=== PATIENT | female | born 1985 | race Caucasian/White ===

== ENCOUNTER 2018-07-25 08:30 | Outpatient (RCR) | payer OTHER, SELFPAY ==
--- NOTE | 2018-05-23 11:22 | HP.PTEVAL_ITS ---
Patient's Visit Information AUSTIN MITCHELL is a 33 year old F referred to Physical Therapy by Marcelino Luna MD with a diagnosis of Multidirectional instability of R shoulder.. Date of Evaluation: 05/23/18 Physical Therapist: Shanna Carreon - Visit Plan Frequency: 2x /Week Duration: 4 Weeks Plan: Focus on posture, scapular stabilization and strengthening, and shoulder strengthening. - Subjective Subjective: Pt. c/o R superior shoulder pain and R clavicular pain. Saw Dr. Vallejo a week and half ago and dx with hyperlaxity and multidirectional instability. Radiographs (-). Pain began couple months ago insideous onset but she notes shoulder pain on/off for years Pain described as achy with sharp pain with activities including getting dressed putting on shirt, sleeping, reaching back to buckle. Pain diminishes within couple seconds. Pain located on superior shoulders and R clavicle; some tingling down to 3rd and 4th phalange. Hx of popping and clicking in R shoulder; no hx of dislocations. Neck stiffness noted with occasional SCOTT. Current pain: night 6/10, day 2-3/10, worst 8-9/10, best 2/10. Pain wakes up at night, with relief sitting upright. Normally sleeps on side but supine now because due to shoulder pain. Icing, and Ibuprofen Mobic rx as needed with little relief. 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 Currently performing less lifting, more computer and less intense work. Notice during ADL but doesn?t restrict. Pain with heavy lifting, pushing objects down. No blurred vision or dizziness. PMH: Raynaud?s, high TRUONG test and will see rheumatologst. No daily medications ; vitamins and supplements daily. Not currently exercising. R hand dominant. Goals include reducing pain. - Pain Superior shoulder Pain Intensity (Out of 10): 2 - Objective Gait: WNL. Posture: R GH joint in forward protracted position. Dermatomes: UE intact with numbness along C5 dermatome on R. Palpation: tender to palpate R superior GH joint and along clavicle. AROM: Cervical WFL, upper trap tightness noted with rotation and lat. flex. R Shoulder flex., ext., abd., add. , ER/IR at 0 and 90 WFL-hypermobility noted. Pain at end ranges flex., abd. Opposition WNL. Strength: upper trap 5/5, R shoulder abd. 3+/5, elbow flex. 4/ 5 with pain, elbow ext. 5/5, wrist flex. and ext. 5/5. Special Test: Neer's (- ) Anterior Relocation (+) - Goals Goal 1:: Patient will be I with HEP and progressions. Goal Time Frame: 4-6 Weeks Goal 2:: Patient will maintain correct posture throughout session to demonstrate increased scap s/s and endurance Goal Time Frame: 4-6 Weeks Goal 3:: Patient will demonstrate increased shoulder strength 5/5 where deficits. Goal Time Frame: 4-6 Weeks Goal 4:: Patient will demonstrate decreased pain at night to 3/10 for 1 week. Goal Time Frame: 4-6 Weeks - Rehabilitation Potential Physical Therapy Diagnosis: Patient presents with hypermobility. Global hyperlaxity including R GH joint resulting in muscular imabalance, and forward posture of GH joint which causes pain interferring with daily function. Rehabilitation Potential: Good - Anticipated Interventions Patient/Client Instruction: Educate patient on: Benefits of Fitness Program For the Purpose of:: To decrease pain, To improve muscle performance and motor function, To increase tolerance to activity/condition/position Therapeutic Exercise to Include: Strength training, Power training, Endurance training, Body mechanics, Postural training, Scapular Strength/Stabilization For the Purpose of:: To decrease pain, To improve muscle performance and motor function, To increase tolerance to activity/condition/position TENS: Yes Cryotherapy (ice pack, ice massage): Yes Thermo therapy (hot pack): Yes Ultrasound (thermal/non thermal): Yes For the Purpose of:: To decrease pain Thank you for the opportunity to evaluate your patient. For Medicare and Medicare HMO plans, please review the plan of care and approve it. It will need to be FAXED BACK to us at [phone] for Medicare purposes. Please let me know if there are questions or concerns regarding this plan of care. Physician Signature: Date:
--- NOTE | 2018-06-20 16:50 | HP.PTREVAL_ITS ---
Marcelino Luna MD, It has been my pleasure to treat AUSTIN MITCHELL over the last 9 visits for Multidirectional instability of R shoulder.. Please see the progress note below for an update on the physical therapy plan of care! Subjective: Pt. reports I am about 40% better overall. Pt. reports being HEP compliant without issues. Pt. is sleeping throughout the night with only occassional symptoms, I am sleeping much better.' Pt. is conserned about continued symptoms with overhead activities. Objective/Function: ROM- Pt. has full ROM of R shoulder, hypermobility noted with shoulder ER and IR (functional). MMT- L UE- 5/5 throughout. R UE- wrist/elbow 5/5 throughout; shoulder- flexion 4+/5 increase NW (anterior sub acromial space), abd 4+/5 (increase NW subacromial space), ER 4+/5 mild increase NW at mid subacromial space, ext 5/5 mild increase NW. Prone mid trap- 4/5, prone lower trap 4/5, serratus anterior. Maurilio test -, avery test - , Millitar brace test -, - empty can, - impingment testing. Pt. does appear to have GH instability, but also scapular winging noted. Pt. reports some 1st rib region pain, assessed, slightly elevated pain with palpation and height of 1st rib. Plan Plan: POC extended 2x per week for another 4 weeks with focus on scapular stability, RTC strengtening, postural strengthening, prone houghstons exercises. Multidirection stability exercises. Goals Goal 1:: Patient will be I with HEP and progressions. Goal Time Frame: 4-6 Weeks Goal Progress: Goal Met Goal 2:: Patient will maintain correct posture throughout session to demonstrate increased scap s/s and endurance Goal Time Frame: 4-6 Weeks Goal Progress: Goal Met Goal 3:: Patient will demonstrate increased shoulder strength 5/5 where deficits. Goal Time Frame: 4-6 Weeks Goal Progress: Progressing Goal 4:: Patient will demonstrate decreased pain at night to 3/10 for 1 week. Goal Time Frame: 4-6 Weeks Goal Progress: Progressing Anticipated Interventions Patient/Client Instruction: Educate patient on: Benefits of Fitness Program For the Purpose of:: To decrease pain, To improve muscle performance and motor function, To increase tolerance to activity/condition/position Therapeutic Exercise to Include: Strength training, Power training, Endurance training, Body mechanics, Postural training, Scapular Strength/Stabilization For the Purpose of:: To decrease pain, To improve muscle performance and motor function, To increase tolerance to activity/condition/position TENS: Yes Cryotherapy (ice pack, ice massage): Yes Thermo therapy (hot pack): Yes Ultrasound (thermal/non thermal): Yes For the Purpose of:: To decrease pain Please do not hesitate to contact me at [phone] by phone or if you have questions or concerns regarding this new plan of care! Sincerely, Cristobal Cheung
--- NOTE | 2018-07-18 09:31 | HP.PTREVAL ---
Marcelino Luna MD, It has been my pleasure to treat AUSTIN MITCHELL over the last 16 visits for Multidirectional instability of R shoulder.. Please see the progress note below for an update on the physical therapy plan of care! Subjective: Patient reports seeing MD who is suggesting a diagnostic cortisone injection and a possible HEP- Objective/Function: ROM- Pt. has full ROM of R shoulder, hypermobility noted with shoulder ER and IR (functional). MMT- L UE- 5/5 throughout. R UE- wrist/elbow 5/5 throughout; shoulder- flexion 4+/5 increase NW (anterior subacromial space), abd 4+/5 (increase NW subacromial space), ER 4+/5 mild increase NW at mid subacromial space, ext 5/5 mild increase NW. increased pain with all testing. Pt. does appear to have GH instability, but also scapular winging noted. Palpation: not tender to touch. Silvia Bermudez: positive Plan Plan: 1x a week for HEP for 3 weeks progression Goals Goal 1:: Patient will be I with HEP and progressions. Goal Time Frame: 4-6 Weeks Goal Progress: Goal Met Goal 2:: Patient will maintain correct posture throughout session to demonstrate increased scap s/s and endurance Goal Time Frame: 4-6 Weeks Goal Progress: Goal Met Goal 3:: Patient will demonstrate increased shoulder strength 5/5 where deficits. Goal Time Frame: 4-6 Weeks Goal Progress: Progressing Goal 4:: Patient will demonstrate decreased pain at night to 3/10 for 1 week. Goal Time Frame: 4-6 Weeks Goal Progress: Progressing Anticipated Interventions Patient/Client Instruction: Educate patient on: Benefits of Fitness Program For the Purpose of:: To decrease pain, To improve muscle performance and motor function, To increase tolerance to activity/condition/position Therapeutic Exercise to Include: Strength training, Power training, Endurance training, Body mechanics, Postural training, Scapular Strength/Stabilization For the Purpose of:: To decrease pain, To improve muscle performance and motor function, To increase tolerance to activity/condition/position TENS: Yes Cryotherapy (ice pack, ice massage): Yes Thermo therapy (hot pack): Yes Ultrasound (thermal/non thermal): Yes For the Purpose of:: To decrease pain Please do not hesitate to contact me at [phone] by phone or if you have questions or concerns regarding this new plan of care! Sincerely, Shanna Carreon
--- NOTE | 2018-12-08 08:57 | HP.PT.NRP ---
HP - Discharge Summary (1) - Patient Information AUSTIN MITCHELL was seen in my office for initial evaluation on 05/23/18. The following Plan of Care was established for this patient: Initial Frequency: 2x /Week Initial Duration: 4 Weeks - Anticipated Interventions Patient/Client Instruction: Educate patient on: Benefits of Fitness Program For the Purpose of:: To decrease pain, To improve muscle performance and motor function, To increase tolerance to activity/condition/position Therapeutic Exercise to Include: Strength training, Power training, Endurance training, Body mechanics, Postural training, Scapular Strength/Stabilization For the Purpose of:: To decrease pain, To improve muscle performance and motor function, To increase tolerance to activity/condition/position TENS: Yes Cryotherapy (ice pack, ice massage): Yes Thermo therapy (hot pack): Yes Ultrasound (thermal/non thermal): Yes For the Purpose of:: To decrease pain This patient was last seen in our office . Pertinent comments regarding their Physical therapy will appear below: Patient has not attended PT in over 90 days- appropriate for d/c at this time. At this point I will be discontinuing this patient from physical therapy. I would be happy to see this patient again in the future if found appropriate by the physician. Thank you! Shanna Carreon DPT
== END 2018-07-25 19:00 | disposition home or self-care (01) ==
LOC: PT 08:30
PROVIDERS: Family Provider Family Medicine; PCP Family Medicine; Visit Provider Specialist
DX: M25.311 Other instability, right shoulder (principal)
CPT/HCPCS: 97110; 97161; 97164; 97530

== ENCOUNTER → 2022-06-13 | Outpatient (CLI) | payer OTHER, SELFPAY ==
[2022-06-13 18:40] LABS: Mucous, Urine 0 SEEN /hpf (<or=2+); Red Blood Cells-Urine 0 SEEN /hpf (0-5); White Blood Cells 0 SEEN /hpf (0-5)
[2022-06-13 18:47] LABS: Color, Urine Straw (Yellow); Glucose, Dipstick Normal (Normal); Ketone-Dipstick Negative (Negative); Leukocyte Esterase-Dipstick Negative /ul (Negative); Nitrite-Dipstick Negative (Negative); Occult Blood-Urine Negative /ul (Negative); Protein-Dipstick Negative (Negative); Specific Gravity, Urine 1.005 (1.002-1.030); Urine Bilirubin Dipstick Negative (Negative); Urine Clarity Clear (Clear); Urine Urobilinogen Normal (Normal)
[2022-06-13 19:32] LABS: Bacteria RARE /hpf (None Seen); Squamous Epithelial Cells - UA 0-5 SEEN /hpf (5-10)
== END | disposition home or self-care (01) ==
PROVIDERS: Visit Provider Nurse Practitioner Family
DX: N39.0 Urinary tract infection, site not specified (principal)
CPT/HCPCS: 81001; 87086

== ENCOUNTER 2023-07-19 12:00 | Outpatient (RCR) | payer OTHER, SELFPAY ==
--- NOTE | 2023-06-08 12:00 | HP.PTEVAL ---
Patient's Visit Information Visit Information Visit Information: AUSTIN MITCHELL is a 38 year old F referred to Physical Therapy by [facility] with a diagnosis of PELVIC FLOOR DYSFUNCTION. Date of Evaluation: 06/07/23 Physical Therapist: Mia Vega PT, Cert MDT Visit Plan Frequency: 1x/Week Duration: 2-4 Months Plan: PF THERAPY FOR STRENGTHENING, LENGTHENING/RELAXATION AND ENDURANCE TRAINING. URINARY URGE AND FREQUENCY EDUCATION. HEALTHY BLADDER HABIT EDUCATION. TRAINING IN COORDINATION OF PELVIC FLOOR MUSCULATURE WITH HIP AND CORE (TRANSVERSE ABDOMINUS) MUSCULATURE. CORE STRENGTHENING. DONI LE ROM, STRETCHING AND STRENGTHENING. TRAINING IN ABDOMINAL CAVITY PRESSURE MGMT WITH ADL'S. CONSIDER US IN SACRAL AREA. 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 2 CHILDREN - AGES 14 AND 17. A LOT OF SACRAL PAIN WITH SACRAL PAIN DURING 2ND . Disability: NO Present symptoms: GENERALIZED TIGHTNESS AND PAIN THAT WRAPS AROUND FROM THE SACRUM TO THE GENITAL AREA AND OCCURS IN THE HIP AND BUTTOCK AREAS. SOME VAGINAL DISCOMFORT THAT HAS IMPROVED SINCE SEEING THE GYNOCOLOGIST. SOME URINARY LEAKAGE WITH URGENCY - CHRONIC X ABOUT 5 YEARS. OCCASSIONAL RO. NO PAIN DURING URINATION. Present since: 5 YEARS. VAGINAL DISCOMFORT IS NEWER WITHIN THE LAST 3-4 MONTH'S. Pain Scale: WORST 6/10, LEAST 1/10 (VAGINAL: WORST 3/10, LEAST 0/10) Currently: 2/10 (VAGINAL 1/10) Is it getting better, worse or staying the same: ALL SX'S ARE GETTING BETTER. Commenced as a result of: FALL IN 2018 and MAYBE STRESS. Worse: COFFEE AND ALCOHOL AND OTHER BLADDER IRRITANTS INCREASE URGE INCONTINENCE. INTERCOURSE INCREASES SACRAL AND PELVIC PAIN. BENDING INCREASES SACRAL AND BUTTOCK PAIN. PROLONGED SITTING INCREASES TAILBONE PAIN. Better: STRETCHING, SOMETIMES ICE, SOMETIMES HEAT, MASSAGE Disturbed sleep: NO. GETTING UP AT NIGHT 0-1 TIMES to urinate. Previous history/Previous treatment: TAILBONE INJURY 2017 - FELL DOWN STEPS AND LANDED ON CORNERS OF 3 STEPS. NOT SURE IF TAILBONE WAS BROKEN. TOOK ABOUT 9 MONTHS TO HEAL. PAIN WENT AWAY AND THEN CAME BACK. SITS ON A CUSHION WHEN RIDING IN A CAR TO DECREASE TAILBONE PAIN. H/O SCIATICA DURING PREGNANCIES AND EPISODICALLY WHICH SHE THINKS HAS EFFECTED BOTH LEGS. 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 OCCASSIONAL ITCHING AND BURNING DURING AND AFTER INTERCOURSE. IUD. NO HISTORY OF PELVIC FLOOR THERAPY. NO HISTORY OF PHYSICAL THERPAY FOR BACK. CURRENTLY SEEING A CHIROPRACTOR AND WENT TO THEM TODAY BEFORE PT. HAS BEEN SEEING CHIROPRACTIC OFF AND ON FOR ABOUT 20 YEARS. Treatment this episode: STEROID CREAM FOR USE NEEDED. Gait: INTERMITTENT NUMBNESS AND STRANGE FEELINGS/WEAKNESS DOWN THE BACK OF LEGS RECENT A MONTH AGO. DOES NOT USE AD'S. How long can you delay the need to urinate: AT LEAST 1 TO 5 MINTUES Prolapse (Falling out feeling): YES Frequency of Urination: APPROX'LY EVERY 2 HOURS Ability to stop urine flow: NOT COMPLETELY Ability to initiate urine stream: YES Dyspareunia: YES Bowel Incontinence: NO Unexplained weight loss: NO Imaging: NONE RECENT. 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 PMH/Recent major surgery: RAYNAUDS DISEASE. NECK PAIN. SHLD PAIN. BACK PAIN. Objective Objective: Sitting/Standing Posture: FAIR Lordosis: NORMAL Lateral shift: NO Relevant shift: N/A Active Correction of posture: BETTER Other Observations: INDEP GAIT AND TRANSFERS. Sensory deficit: DONI LE'S GROSSLY INTACT AND SYMMETRICAL ROM deficit: L HIP IR/ER TIGHTNESS COMPARED TO R. HIP FLEXOR TIGHTNESS. Motor deficit: DONI LE'S GROSSLY 5/5 WITH MMT'ING EXCEPT HIPS 4/5 Dural Signs: NEGATIVE DONI LE'S. Lumbar mvmt loss: flex - NIL ext - NIL R SG - NIL L SG - NIL PATIENT REPORTS INCREASED LBP WITH LUMBAR EXTENSION TESTING. Core strength: FAIR Palpation: MANUAL INTERNAL VAGINAL PELVIC FLOOR TESTING REVEALS MULTIPLE PF TRIGGER POINTS, MILD TIGHTNESS AND MILD TENDERNESS. THERE IS SIGNIFICANT PF WEAKNESS GRADED 3/5 WITH 3-4 SEC ENDURANCE X 3 REPS. FUNCTIONAL SCREEN: Incontinence Impact Questionnaire Score: 6 Urogenital Distress Inventory Score: 8 Goals Goal 1:: DECREASE C/O PELVIC/SACRAL PAIN Goal Time Frame: 4-6 Weeks Goal 2:: PATIENT WILL SUCCESSFULLY DELAY VOIDING LONG NEEDED WHEN URGENCY OCCURS TO SUCCESSFULLY MAKE IT TO THE BATHROOM. Goal Time Frame: 2-4 Weeks Goal 3:: PATIENT WILL DEMONSTRATE/COMMUNICATE 10 CONSISTENT AND CONSECUTIVE 10 SECOND PELVIC FLOOR MUSCLE CONTRACTIONS TO DEMONSTRATE IMPROVED PELVIC FLOOR ENDURANCE. Goal Time Frame: 8-12 Weeks Goal 4:: PATIENT WILL BE ABLE TO HAVE SEXUAL RELATIONS WITH HER WITHOUT PAIN. Goal Time Frame: 8-12 Weeks Goal 5:: NORMALIZE VOIDING FREQUENCEY TO EVERY 3-4 HOURS. Goal Time Frame: 6-8 Weeks Goal 6:: PATIENT WILL BE INDEP WITH A HEP/HOME INSTRUCTIONS FOR CONTINUED IMPROVEMENT ONCE FORMAL PHYSICAL THERAPY CONCLUDES. Goal Time Frame: 8-12 Weeks Anticipated Interventions Patient/Client Instruction: Educate patient on: Condition, Plan of Care and Risk Factors For the Purpose of:: To improve self management Therapeutic Exercise to Include: Strength training, Endurance training, Body mechanics, Postural training, Flexibilty training, Neuromotor development and Relaxation training For the Purpose of:: To decrease pain, To increase ROM, To improve muscle performance and motor function, To increase tolerance to activity/condition/position and To improve ability of physical actions for home/community/work/leisure Manual Therapy Techniques to Include: Trigger point massage and Soft tissue mobilization For the Purpose of:: To decrease pain, To increase ROM and To improve nutrient delivery to tissue Ultrasound (thermal/non thermal): Yes For the Purpose of:: To decrease pain and To improve nutrient delivery to tissue Text: Thank you for the opportunity to evaluate your patient. For Medicare and Medicare HMO plans, please review the plan of care and approve it. It will need to be FAXED BACK to us at [phone] for Medicare purposes. For Medicare only, by signing this I certify the plan of care. Please let me know if there are questions or concerns regarding this plan of care. Physician Signature: Date:
--- NOTE | 2023-07-19 19:06 | HP.PTREVAL_ITS ---
Re-Evaluation Intro: [facility], It has been my pleasure to treat AUSTIN MITCHELL over the last 7 visits for PELVIC FLOOR DYSFUNCTION. Please see the progress note below for an update on the physical therapy plan of care! Subjective Subjective: PATIENT REPORTS THAT WHEN SHE GETS THE URGE TO PEE SHE CAN'T HOLD IT WELL NOW. VAGINAL DISCOMFORT AND L HIP BOTH FELT BETTER FOR A FEW DAYS AFTER LAST VISIT. BENEFIT FROM LAST VISIT WAS TEMPORARY. PATIENT QUESTIONING IF SHE SHOULD START STRENGTHENING EX'S. Objective Objective/Function: PHYSICIAN RE-ASSESSMENT RECOMMENDED BASED ON LACK OF OVER- ALL SIGNIFICANT IMPROVEMENT. PATIENT MAY BENEFIT FROM MORE EXPERIENCE PELVIC FLOOR THERAPIST CONSULT. Plan Plan Plan: HOLD PT. Goals Goals Goal 1:: DECREASE C/O PELVIC/SACRAL PAIN Goal Time Frame: 4-6 Weeks Goal Progress: Not Progressing Goal 2:: PATIENT WILL SUCCESSFULLY DELAY VOIDING LONG NEEDED WHEN URGENCY OCCURS TO SUCCESSFULLY MAKE IT TO THE BATHROOM. Goal Time Frame: 2-4 Weeks Goal Progress: Not Progressing Goal 3:: PATIENT WILL DEMONSTRATE/COMMUNICATE 10 CONSISTENT AND CONSECUTIVE 10 SECOND PELVIC FLOOR MUSCLE CONTRACTIONS TO DEMONSTRATE IMPROVED PELVIC FLOOR ENDURANCE. Goal Time Frame: 8-12 Weeks Goal 4:: PATIENT WILL BE ABLE TO HAVE SEXUAL RELATIONS WITH HER WITHOUT PAIN. Goal Time Frame: 8-12 Weeks Goal Progress: Not Progressing Goal 5:: NORMALIZE VOIDING FREQUENCEY TO EVERY 3-4 HOURS. Goal Time Frame: 6-8 Weeks Goal 6:: PATIENT WILL BE INDEP WITH A HEP/HOME INSTRUCTIONS FOR CONTINUED IMPROVEMENT ONCE FORMAL PHYSICAL THERAPY CONCLUDES. Goal Time Frame: 8-12 Weeks Anticipated Interventions Anticipated Interventions Patient/Client Instruction: Educate patient on: Condition, Plan of Care and Risk Factors For the Purpose of:: To improve self management Therapeutic Exercise to Include: Strength training, Endurance training, Body mechanics, Postural training, Flexibilty training, Neuromotor development and Relaxation training For the Purpose of:: To decrease pain, To increase ROM, To improve muscle performance and motor function, To increase tolerance to activity/condition/position and To improve ability of physical actions for home/community/work/leisure Manual Therapy Techniques to Include: Trigger point massage and Soft tissue mobilization For the Purpose of:: To decrease pain, To increase ROM and To improve nutrient delivery to tissue Ultrasound (thermal/non thermal): Yes For the Purpose of:: To decrease pain and To improve nutrient delivery to tissue Re-Evaluation Ending Re-evaluation ending: Please do not hesitate to contact me at [phone] by phone or Fax: if you have questions or concerns regarding this new plan of care! Sincerely, Mia Vega, PT, Cert MDT
--- NOTE | 2023-12-14 15:56 | HP.PTDCNRP_ITS ---
Patient Information Patient Information: AUSTIN MITCHELL was seen in my office for initial evaluation on 06/07/23. The following Plan of Care was established for this patient: POC Established Initial Frequency: 1x/Week Initial Duration: 2-4 Months Anticipated Interventions Patient/Client Instruction: Educate patient on: Condition, Plan of Care and Risk Factors For the Purpose of:: To improve self management Therapeutic Exercise to Include: Strength training, Endurance training, Body mechanics, Postural training, Flexibilty training, Neuromotor development and Relaxation training For the Purpose of:: To decrease pain, To increase ROM, To improve muscle performance and motor function, To increase tolerance to activity/con dition/position and To improve ability of physical actions for home/community/work/leisure Manual Therapy Techniques to Include: Trigger point massage and Soft tissue mobilization For the Purpose of:: To decrease pain, To increase ROM and To improve nutrient delivery to tissue Ultrasound (thermal/non thermal): Yes For the Purpose of:: To decrease pain and To improve nutrient delivery to tissue Last Seen Last Seen: This patient was last seen in our office 07/19/24. Pertinent comments regarding their Physical therapy will appear below: This patient has not returned to Physical Therapy and is appropriate to return to MD for further follow-up as needed. At this point I will be discontinuing this patient from physical therapy. I would be happy to see this patient again in the future if found appropriate by the physician. Thank you! Mia Vega, PT, Cert MDT
== END 2023-07-19 19:00 | disposition home or self-care (01) ==
LOC: PT 12:00
DX: M62.89 Other specified disorders of muscle (principal); N94.89 Other specified conditions associated with female genital organs and menstrual cycle
CPT/HCPCS: 97140; 97162; 97530